=== PATIENT | female | born 1950 | race Caucasian/White ===

== ENCOUNTER → 2017-07-03 | Outpatient (CLI) | payer OTHER, BC ==
[~2017-07-03] MED LIST: ALPR-411 PO; HYDR-4079 PO; METO-157 PO
--- NOTE | 2017-07-04 12:47 | MAMMOGRAPHY REPORT ---
BILATERAL DIGITAL SCREENING MAMMOGRAM TOMOSYNTHESIS WITH CAD: 07/03/2017 CLINICAL HISTORY: Routine screening. Patient has no complaints. TECHNIQUE: Breast tomosynthesis in addition to standard 2D mammography was performed. Current study was also evaluated with a Computer Aided Detection (CAD) system. COMPARISON: Comparison is made to exams dated: 05/29/2016 mammogram, 10/20/2014 mammogram, 06/18/2013 mammogram, 05/26/2012 mammogram, 04/25/2011 mammogram, and 04/18/2010 mammogram - [facility]. BREAST COMPOSITION: There are scattered areas of fibroglandular density in both breasts. FINDINGS: No suspicious masses, calcifications, or areas of architectural distortion are noted in ei ther breast. There has been no significant interval change compared to prior exams. Scattered bilater al benign-appearing calcifications are not significantly changed. A linear scar marker denotes a sca r on the left anterior breast. IMPRESSION: ACR BI-RADS CATEGORY 2: BENIGN There is no mammographic evidence of malignancy. A 1 year screening mammogram is recommended. The pa tient will receive written notification of the results. Approximately 10% of breast cancers are not detected with mammography. A negative mammographic report should not delay biopsy if a clinically suggestive mass is present. Mali Pascual M.D. ah/:07/03/2017 14:46:43 Certified Physician'S Assistant: Ada HOANG)(Danelle), [facility] letter sent: Normal 1/2 BI-RADS Code: ACR BI-RADS Category 2: Benign
== END | disposition home or self-care (01) ==
LOC: C.MAMM 13:19
PROVIDERS: ATTEND Internal Medicine Geriatric Medicine
DX: Z12.31 Encounter for screening mammogram for malignant neoplasm of breast (principal)

== ENCOUNTER → 2017-09-10 | Outpatient (CLI) | payer OTHER, BC ==
[2017-09-10 13:53] LABS: BASO % 0.5 %; BASO ABS # 0.03 K/uL (0-0.2); COMPLETE YES; EOS % 1.6 %; HEMATOCRIT 40.7 % (37-47); IG% 0.2 %; LYMPH % 33.6 %; LYMPH ABS # 1.88 K/uL (1.2-3.4); MEAN CELL VOLUME 92.5 fL (80-100); MEAN CORPUSCULAR HEMOGLOBIN 30.9 pg (25-34); MEAN CORPUSCULAR HGB CONC 33.4 g/dl (32-36); MEAN PLATELET VOLUME 10.9 fL (7.4-10.4); MONO % 12.2 %; NEUT % 51.9 %; PLATELET COUNT 202 K/uL (130-400); WHITE BLOOD COUNT 5.59 K/uL (4.8-10.8)
[2017-09-10 14:18] LABS: ALT/SGPT 31 U/L (12-78); AST/SGOT 12 U/L (15-37); BLOOD UREA NITROGEN 17 mg/dl (7-18); BUN/CREATININE RATIO 16.9 (10-20); CALCIUM 8.7 mg/dl (8.5-10.1); CARBON DIOXIDE 26 mmol/L (21-32); CHLORIDE 110 mmol/L (98-107); GLUCOSE 93 mg/dl (70-99); POTASSIUM 4.2 mmol/L (3.5-5.1); SODIUM 143 mmol/L (136-145)
[2017-09-10 14:28] LABS: ALB/GLOB RATIO 1.2 (0.9-2); ALKALINE PHOSPHATASE 109 U/L (45-117)
[2017-09-10 15:02] LABS: ESTIMATED AVERAGE GLUCOSE 131 mg/dl; HA1C FLAG Normal (Normal)
== END | disposition home or self-care (01) ==
LOC: C.LABBC 11:52
PROVIDERS: ATTEND Internal Medicine Geriatric Medicine
DX: E78.5 Hyperlipidemia, unspecified (principal); E73.9 Lactose intolerance, unspecified

== ENCOUNTER → 2018-03-05 | Outpatient (CLI) | payer OTHER, BC | END | disposition home or self-care (01) | LOC: C.RDSM 13:47 | PROVIDERS: ATTEND Podiatrist | DX: M79.672 Pain in left foot (principal) ==

== ENCOUNTER → 2018-03-13 | Outpatient (CLI) | payer OTHER, BC | END | disposition home or self-care (01) | LOC: C.PAPS 14:18 | PROVIDERS: ATTEND Obstetrics & Gynecology | DX: Z12.4 Encounter for screening for malignant neoplasm of cervix (principal); Z78.0 Asymptomatic menopausal state ==

== ENCOUNTER → 2018-06-19 | Outpatient (CLI) | payer OTHER, BC ==
--- NOTE | 2018-06-20 06:14 | PAP/PSG TECHNICIAN REPORT ---
[facility] Trailer Rental Clerk Polysomnogram Report Study name: None Report date: 06/20/2018 Study date: 06/19/2018 Referring Physician: Thai Costello M.D. Name: JUAN MIGUEL PAUL Lauren Interpreting Physician: Thai Costello M.D. Date of : 1950 Trailer Rental Clerk: Yaquelin Maher RPS. Sex: Female Age: 68 StudyType: PSG Weight: 187 lbs Height: 68 years, Height 5' 9" Neck Circum:14 inches BMI: 27.61 Medications: Epi-Pen, Hydrocodone-Acetaminophen 10-325 mg, Nizatidine 150 mg Patient History 68 yr. old male here for a diagnostic sleep study. Patient complains of loud snoring, fragmented sleep architecture, fatigue and witnessed apneas. ESS 6-06/24. Parameters Monitored NPSG: E1-M2, E2-M1, Fp1-M2, Fp2-M1, F3-M2, F4-M2, F4-M1, C3-M2, C4-M2, C4-M1, O1-M2, O2-M2, O2-M1, T3-M2, T4-M1, P3-M2, P4-M1, CHIN1, CHIN2, HR, EKG, Legs, PFLOW, SNOR, FLOW, CFLOW, Tidal Volume, THOR, ABDO, SpO2, PLTH, CPRESS, ETCO2 Wave, ETCO2, pH Sleep Architecture Sleep Stages Time at Lights Off 10:26:08 PM STAGES Time (min.) TST (%) Time at Lights On 5:30:38 AM Wake 46.5 -- Total Recording Time (TRT) 424.50 min. N1 50.5 13 Total Sleep Period (TSP) 416.5 min. N2 191.0 51 Total Sleep Time (TST) 378.0min. N3 58.5 15 Awake Time 46.5 min. REM 78.0 21 Wake after Sleep Onset 38.5 min. Sleep Efficiency (SE) 89 % Sleep Onset Latency (MIKEY) 8.0 min. Number of Stage 1 Shifts None Awakenings 17 Stage Changes 77 Number of REM periods 6 REM 78.0 21 REM Latency 96.5 min. NREM 300.0 79 Body Position Analysis Supine Right Left Side Prone Vertical Total Sleep Time (min.) 34.9 319.9 34.6 354.49 0.0 0.0 Total Sleep Time (%) 6% 85% 9% 94 0% N/A% Total Sleep Time REM (min.) 0.0 78.0 0.0 None 0.0 0.0 Total Sleep Time NREM (min.) 23.5 241.9 34.6 None 0.0 0.0 Intermittent Wake (min.) 11.4 15.1 20.0 None 0.0 0.0 Total Sleep Period (%) 8% None None None None None Arousals Myoclonus (PLM) * Events Count Index Events Count Index Spontaneous 12 2 Events Awake (PLMW) 31 40.0 Respiratory 7 1.9 Events Asleep w/ Arousal (PLMA) 7 1.1 PLM 7 1 Events Asleep w/o Arousal (PLMS) 10 1.6 Snoring 2 0 Total Asleep 17 2.7 Total 28 4 Total 48 7 Respiratory Analysis * CA OA MA CH H RERA Total Count 2 14 0 0 19 8 35 Index 0.3 2.2 0.0 0 3.0 1 6.8 Mean Duration 12.3 18.7 0.0 0.00 31.7 33.3 26.9 Longest Duration 13.5 28.9 0.0 0.00 0.0 49.9 53.3 Respiratory Event Summary Total Supine ~Supine Right Left Prone REM NREM Apneas Count 16 0 16 16 0 N/A 13 3 Index 2.5 0 3 3.0 0.0 N/A 10 1 Hypopneas (4% Desat) Count 19 0 19 14 5 N/A 9 10 Index 3.0 0.0 3 2.6 8.7 N/A 6.9 2.0 Apneas & All Hypopneas Count 35 0 35 30 5 N/A 22 13 Index 5.6 0 6 6 9 N/A 16.9 2.6 Respiratory Events ([employer] Alarm Superintendent+All Hyp+RERA) Count 35 0 43 36 7 N/A 22 13 Index 6.8 0 7 6.8 12.2 N/A 19.2 3.6 Respiratory Related Arousal Count 7 0 12 7 5 N/A 3 9 Index 1.9 0 2 1 9 N/A 2 2 Snoring Analysis Supine Right Left Prone REM NREM Total Snore duration 36.4 min Snores count 10 1,393 56 N/A 509 950 1,459 Snore mean duration 1.5 Sec Snores index 26 261 97 N/A 391.5 190.0 231.6 TST with snoring (%) 9.6% Desaturation Event Summary: Minimum %SpO2 Event Count Mean/Min/Max Duration(sec.) Desaturation Index % Time In Bed > 90 12 37.4 / 6.8 / 59.0 1.7 100.0 86 - 90 0 N/A 0.0 0.0 81 - 85 0 N/A 0.0 0.0 76 - 80 0 N/A 0.0 0.0 71 - 75 0 N/A 0.0 0.0 66 - 70 0 N/A 0.0 0.0 61 - 65 0 N/A 0.0 0.0 56 - 60 0 N/A 0.0 0.0 51 - 55 0 N/A 0.0 0.0 < 50 0 N/A 0.0 0.0 Total REM NREM Awake <50% 0.0 min. 0.0 min. 0.0 min. 0.0 min. 51 - 60% 0.0 min. 0.0 min. 0.0 min. 0.0 min. 61 - 70% 0.0 min. 0.0 min. 0.0 min. 0.0 min. 71 - 80% 0.0 min. 0.0 min. 0.0 min. 0.0 min. 81 - 90% 0.1 min. 0.1 min. 0.0 min. 0.0 min. 91 - 100% 423.3 min. 78.0 min. 300.0 min. 45.4 min. Average 96 97 95 96 Minimum SpO2 90 90 92 90 Desaturation Event Index 1.7 3.8 1.2 1.3 # Desat. Events below 89% N/A N/A N/A N/A Time(%) with Saturation below 89% 0.0 0.0 0.0 0.0 Time(min.) with Saturation below 89% 0.0 0.0 0.0 0.0 Time (mins) REM (mins) NREM (mins) % of TST SpO2 Below 90% 2 1 N1 0.0 SpO2 Below 88% 0 0 0 0 Heart Rate Analysis Min (bpm) Max (bpm) Average (bpm) Awake 51 76 58 NREM 47 74 53 REM 48 70 53 Overall 47 74 53 Supplemental O2 Values Minimum O2 level: None Value Start Time End Time Trailer Rental Clerk Comments Mrs. Trevino slept in the right, left, and supine positions. No cardiac arrhythmia. PLMs noted. No bruxism noted. Snoring was noted and scored as a 4 on a scale of 0 through 5. (0=no snoring, 5=snoring loud enough to be heard through a closed door or down the [address] way) Mrs. Trevino did not wake to use the restroom during the night. Mrs. Trevino was having shoulder pain, and requested ice. Mrs. Trevino stated, I slept better last night. The final report will be interpreted and signed by a sleep physician. The completed physician report will then be placed in the patient medical record. Therapy (cm H2O) 0 TIB (min.) 424.5 TST (min.) 378.0 Sleep Onset (min.) 8.0 REM Onset From Sleep (min.) 96.5 Sleep Efficiency % 89 Wakefulness (%) 11 Wakefulness (min.) 46.5 NREM 1 (%) 13 NREM 1 (min.) 50.5 NREM 2 (%) 51 NREM 2 (min.) 191.0 NREM 3 (%) 15 NREM 3 (min.) 58.5 REM (%) 21 REM (min.) 78.0 # Arousals 28 Arousal Index 4 # Snore 1,459 Snore Index 231.6 AHI 5.6 AHI Supine 0 AHI Non-Supine 6 NREM AHI 2.6 REM AHI 16.9 RDI 6.8 # Obstructive Apnea 14 # Central Apnea 2 # Mixed Apnea 0 # Hypopneas 19 RERAs 8 Total Respiratory Events 44 Time Below SpO2 89% (min.) 0.0 Mean NREM SpO2 (%) 95 Mean REM SpO2 (%) 97 Mean Sleep SpO2 (%) 96 Min NREM SpO2 (%) 92 Min REM SpO2 (%) 90 Position Supine (min.) 34.9 Position Non-supine (min.) 354.5 LM Index Sleep 2.7 LM Index NREM 2.8 LM Index REM 2.3 Mean Heart Rate (bpm) 53 Min Heart Rate (bpm) 47
--- NOTE | 2018-06-23 13:37 | POLYSOMNOGRAPH REPORT ---
CLINICAL DATA: A 68-year-old female with BMI of 27.6 referred by myself and Dr. Mack Bobo for a diagnostic sleep study with complaints of loud snoring, fragmented sleep architecture, fatigue, and witnessed apneic episodes. SLEEP ARCHITECTURE: Total sleep period was 416.5 minutes. Total sleep time was 378 minutes divided between 300 minutes of non-REM sleep and 78 minutes of REM sleep. Sleep latency was 8 minutes. REM latency was 96.5 minutes. Sleep efficiency was 89%. Wake after sleep onset was 38.5 minutes. Sleep consisted of stage N1 13%, stage N2 51%, stage N3 15%, and REM 21%. AROUSAL DATA: 28 arousals were recorded for an index of 4 per hour. PLM DATA: Seventeen limb movements during sleep were noted for an index of 2.7 per hour with arousal index of 1.1 per hour. RESPIRATORY DATA: Very mild sleep apnea was documented. The AHI was 5.6. The RDI was 6.8. There were 2 central and 14 obstructive apneic episodes. The longest apneic episode was 28.9 seconds. There were 19 hypopneic episodes with a mean duration of 31.7 seconds. There were 8 RERAs. The longest RERA was 49.9 seconds. OXIMETRY DATA: No hypoxemia was seen. Oxygen cheng was 90% during REM. Mean saturation was 96%. EKG: Heart rates ranged from 47-74 beats per minute. No arrhythmias were noted. AUTO BODY CUSTOMIZER'S COMMENTS: The patient slept in the right, left, and supine position. Snoring was severe, rated 4 on a scale of 1-5. IMPRESSION: Very mild sleep apnea/hypopnea with an AHI of 5.6 and an RDI of 6.8 without nocturnal hypoxemia. RECOMMENDATIONS: The patient may benefit from weight loss, use of an oral appliance, or repeat sleep study with CPAP. Clinical correlation is needed. [facility]
== END | disposition home or self-care (01) ==
LOC: C.NEUR 21:00
PROVIDERS: ATTEND Internal Medicine Pulmonary Disease
DX: G47.30 Sleep apnea, unspecified (principal)

== ENCOUNTER → 2018-06-27 | Outpatient (CLI) | payer OTHER, BC ==
[~2018-06-27] VITALS: Ht 176.5 cm; Wt 85.5 kg
[2018-06-27 12:55] VITALS: BP 127/75; PULSE 69; Ht 176.5 cm; Wt 85.5 kg
== END | disposition home or self-care (01) ==
LOC: C.NEUR 12:45
PROVIDERS: ATTEND Internal Medicine Pulmonary Disease
DX: G47.33 Obstructive sleep apnea (adult) (pediatric) (principal)